=== PATIENT | male | born 1970 | race Caucasian/White ===

== ENCOUNTER 2018-09-07 21:05 | Inpatient (IN) | payer OTHER ==
[~2018-09-07] VITALS: Ht 182.9 cm; Wt 90.7 kg
[2018-09-07 21:19] VITALS: BP 134/93
[2018-09-07 22:19] LABS: ABSOLUTE NEUTROPHILS 3.5 thou/uL (1.4-8.2); BASOPHILS 0.7 % (0.0-2.0); EOSINOPHILS 1.8 % (0.0-3.0); HEMOGLOBIN 16.2 gm/dL (14.0-18.0); LYMPHOCYTES 34.7 % (24.0-44.0); MCH 36.2 pg (26.0-34.0); MCHC 35.1 g/dL (28.0-37.0); MCV 102.9 fL (80.0-100.0); MONOCYTES 9.2 % (1.0-8.0); PLATELET COUNT 186 thou/uL (150-400); POLYS 53.6 % (36.0-66.0); RBC 4.47 mil/uL (4.50-6.00); RDW 14.4 % (10.5-14.5); WBC 6.6 thou/uL (4.0-11.0)
[2018-09-07 22:21] LABS: ANION GAP 11 mmol/L (7-16); BUN 12 mg/dL (7-18); CALCIUM 9.8 mg/dL (8.5-10.1); CHLORIDE 101 mmol/L (98-107); CO2 31 mmol/L (21-32); GLUCOSE 107 mg/dL (74-106); POTASSIUM 4.1 mmol/L (3.5-5.1); SODIUM 143 mmol/L (136-145)
[2018-09-07 22:30] LABS: ALBUMIN 4.5 g/dL (3.4-5.0); MAGNESIUM 1.9 mg/dL (1.8-2.4); PHOSPHORUS 4.4 mg/dL (2.5-4.9); SALICYLATE < 2.8 mg/dL (2.8-20.0); SGOT 132 U/L (15-37); SGPT 220 U/L (30-65); TOTAL BILIRUBIN 0.7 mg/dL (<0.1-1.0); TOTAL PROTEIN 8.5 g/dL (6.4-8.2); TROPONIN-I <0.06 ng/mL (<0.06)
[2018-09-07 23:20] VITALS: BP 125/90
[2018-09-07 23:48] LABS: FOLIC ACID 3.9 ng/mL (8.6-58.9)
[2018-09-07 23:53] VITALS: BP 125/90
[2018-09-08 00:06] VITALS: BP 139/93
[2018-09-08] MEDS ORDERED: LISINOPRIL-HCT1 EAC2 PO (00:46)
--- NOTE | 2018-09-08 02:39 | NUR ---
0003 PATIENT ADMITTED FROM ER PER CART. AMBULATED INTO ROOM WITH STEADY GAIT. TEACHING FOR PAIN MANAGMENT, FALL PRECAUTIONS AND ETOH WITHDRAWEL PROTOCOL. VOICES UNDERSTANDING. PATIENT CAME IN FOR DETOX THEN PLANS FOR INPATIENT REHAB. ADMISSION PROCESS COMPLETED. ORIENTED TO ROOM AND FLOOR POLICIES. AGREES TO CALL FOR ASSISTANCE WHEN UP IF DIZZY OR TREMORS ARE BAD. NOT PROGRESSING AT THIS TIME TOWARDS DISCHARGE GOALS. CONTINUE TO ASSES CLOESLY.
[2018-09-08 03:10] VITALS: BP 138/92
--- NOTE | 2018-09-08 07:41 | NUR ---
SLEPT PART OF SHIFT. UP WITH STEADY GAIT. MAINTAIN SAFE ENVIRONMENT. ATIVAN GIVEN PER ETOH PROTOCOL WITH NOTED RELIEF. WORKING ON GOALS AND PLAN OF CARE FOR NOC. PROGRESSING SLOWLY TOWARDS DISCHARGE GOALS TO REHAB. CONTINUE TO ASSESS CLOESLY.
[2018-09-08 07:48] VITALS: BP 132/84
--- NOTE | 2018-09-08 08:27 | EKG ---
[address] [address] ELECTROCARDIOGRAM REPORT Name: ANKIT EPSTEIN Room #: 354-P ADM IN M.R.#: [id number] Admission: 09/07/18 Attend Phys: Maximilian Narayan MD Discharge: Date of : 70 Report #: [id number] THIS REPORT FOR: //name// [facility] ED Test Date: 2018-09-07 Test Time: 21:09:53 Pat Name: ANKIT EPSTEIN Department: Room: 354 Gender: M Employee Benefits Specialist: SHEILA : 1970 Requested By: Sal Burgess Order Number: [id number] MD: Ruddy Perez Measurements Intervals [place] Rate: 107 P: 46 DC: 156 QRS: 57 QRSD: 92 T: 48 QT: 337 QTc: 450 Interpretive Statements Sinus tachycardia No previous ECG available for comparison Electronically Signed On 09-08-2018 8:27:50 [employer] by Ruddy Perez [email or web address] <ELECTRONICALLY SIGNED> By: Ruddy Perez MD 09/08/18 0827 [id number] MD MARCELL Asif
[2018-09-08 12:03] VITALS: BP 146/90
--- NOTE | 2018-09-08 15:41 | NUR ---
Assumed care of Pt at 0700. Pt AOx4 in mild distress. CIWA 9. Ativan given approx Q2H per physician instruction. mild tachycardia on telemetry. vitals stable. up w/ steady gait. IV fluids infusing per order. pt voicing no particular concerns at this time. pt progressing toward poc goals.
[2018-09-08 15:55] VITALS: BP 147/90
[2018-09-08 19:55] VITALS: BP 147/89
[2018-09-09 04:15] VITALS: BP 148/104
--- NOTE | 2018-09-09 04:27 | NUR ---
SLEPT PART OF SHIFT. ATIVAN GIVEN EVERY 4 HOURS FOR ANXIETY AND TREMORS. STATES HE FINALLY GOT SOME SLEEP TONIGHT. UP TO BATHROOM WITH STEADY GAIT. WORKING ON GOALS AND PLAN OF CARE FOR NOC. PROGRESSING SLOWLY TOWARDS DISCHARGE GOALS. CONTINUE TO ASSES.
[2018-09-09 06:11] LABS: CALCIUM 8.6 mg/dL (8.5-10.1); CREATININE 0.7 mg/dL (0.7-1.3); MAGNESIUM 1.7 mg/dL (1.8-2.4); PHOSPHORUS 3.4 mg/dL (2.5-4.9); POTASSIUM 3.4 mmol/L (3.5-5.1)
[2018-09-09 06:33] VITALS: BP 133/92
[2018-09-09 07:47] VITALS: BP 146/92
[2018-09-09 11:38] VITALS: BP 136/89
--- NOTE | 2018-09-09 14:54 | NUR ---
INITIAL ASSESSMENT: Received consult for ETOH treatment options. ALFONZO reviewed chart and spoke with nursing and attending physician. Pt was admitted from home due to ETOH intoxication. Pt interested in treatment options. ALFONZO met with pt at bedside. Introduced role of SW. Pt is alert/orientated x 4. Pt reports he lives at home with his s/o. Prior to admission, pt was independent with ADLs. No use of DME. Pt ambulating hallways independently. Pt noted to have tremors. SW discussed options for ETOH. Pt is interested in [facility]. Pt states he will also call [facility] to see if that might be an option. Pt agreeable with referral to [facility]. SW faxed clinical info to [facility] and received call back from Eri, who states they are able to accept pt's insurance. Will need updated clinical info and nurses notes when pt is more stable for discharge. Per Eri, they are able to admit pt directly from [facility] if needed. Awaiting psych consult at this time. ALFONZO is following to assist as needed with discharge planning.
[2018-09-09 15:29] VITALS: BP 155/101
--- NOTE | 2018-09-09 15:35 | NUR ---
Assumed care of Pt at 0700. Pt AOx4 showing withdrawal symptoms. CIWA 9-12. Pt cooperative and compliant with calling for assistance as needed. Psych consulted today. Up w/ steady gait, ambulating around hallway. hypertensive but stable. sinus on telemetry. pt making good progress toward poc goals.
[2018-09-09 20:10] VITALS: BP 141/95
[2018-09-10 04:15] VITALS: BP 132/84
[2018-09-10 06:11] LABS: CALCIUM 8.3 mg/dL (8.5-10.1); CREATININE 0.8 mg/dL (0.7-1.3); POTASSIUM 3.6 mmol/L (3.5-5.1)
--- NOTE | 2018-09-10 06:29 | NUR ---
SLEPT MOST OF SHIFT. UP AD AUDRA IN ROOM. STATES TREMORS ARE ALMOST GONE. WORKING ON GOALS AND PLAN OF CARE FOR NOC. PROGRESSING TOWARDS DISCHARGE GOALS TO REHAB. STATES HE WANTS REHAB. CONTINUE TO ASSES. MAINTAIN SAFE ENVIRONMENT.
[2018-09-10 08:55] VITALS: BP 142/93
--- NOTE | 2018-09-10 11:51 | NUR ---
Assumed care of patient at 0700. Vitals have been stable. Alert and oriented x4, CIWAs as charted. Slight tremors, mild anxiety / restlessness and mild sweats. PRN Ativan. Steady gait, up ad vivian in room. Ready for discharge. DC orders received. Patient to go to inpatient rehab - [facility] called and requested information to be faxed to them. Patient states he does not want to go to [facility] and is now looking at [facility]. States they will not have a bed until Thursday "but that's okay." Updated case management. CM to round on patient soon. Continue to monitor.
[2018-09-10 12:38] VITALS: BP 159/95
[2018-09-10 13:00] VITALS: BP 159/95
--- NOTE | 2018-09-10 13:45 | NUR ---
DISCHARGE PLANNING. PER PATIENT REQUEST CALL PLACED TO [facility] FOR REHAB NEEDS. SPOKE WITH JENNIFER, DISCUSSED PATIENT AND REHAB NEEDS. PER JENNIFER PATIENT IS ON THEIR READY TO ADMIT [facility]ENS[facility] FOR THURSDAY. ASKED JENNIFER IF SHE NEEDED ANY ADDITIONAL CLINICAL INFORMATION FROM US, SHE STATES SHE DID NOT. UNIT SW NOTIFIED. FOLLOWING TO ASSIST. [facility] [phone] FAX [phone].
--- NOTE | 2018-09-10 14:23 | NUR ---
DISCHARGE NOTE: ALFONZO reviewed chart and spoke with nursing and attending physician. Pt is medically stable for discharge today. ALFONZO met with pt at bedside to discuss discharge plan. Pt states he has made several phone calls and has been accepted to [facility] in [place] ( ). [facility]. [facility] notified. Pt will discharge home and [facility] arrangements to have pt admitted over the weekend or on Thursday. land planner contacted Malia at [facility], who confirms plan. ALFONZO updated pt's nurse. No additional SW needs identiifed at this time, but is available to assist should needs arise.
== END 2018-09-10 15:34 | DRG 432 ==
LOC: ER 21:05 → 3W 22:57 → EROBS 22:57 → 3W 23:53
PROVIDERS: Emergency Medicine; Internal Medicine; ADMIT Internal Medicine
DX: K70.10 Alcoholic hepatitis without ascites (principal); G92 Toxic encephalopathy; F10.239 Alcohol dependence with withdrawal, unspecified; I10 Essential (primary) hypertension; R74.0 Nonspecific elevation of levels of transaminase and lactic acid dehydrogenase [LDH]; I48.0 Paroxysmal atrial fibrillation; E83.42 Hypomagnesemia; F10.229 Alcohol dependence with intoxication, unspecified; E87.6 Hypokalemia; Z28.21 Immunization not carried out because of patient refusal; Z88.0 Allergy status to penicillin; Z87.891 Personal history of nicotine dependence; Z79.899 Other long term (current) drug therapy
CPT/HCPCS: 10879